=== PATIENT | male | born 1980 | race Two or more races ===

== ENCOUNTER 2018-08-08 18:31 | Emergency (ER) | payer OTHER ==
[~2018-08-08] VITALS: Ht 175.3 cm; Wt 77.3 kg
[2018-08-08 18:53] VITALS: BP 131/83
[2018-08-08] MEDS ORDERED: LIDOCAINE-MPF 2%, 2ML ONE (19:05)
[2018-08-08] MEDS ORDERED: DIPH,PERTUSS(ACELL),TET VAC/PF 0.5 ML IM-VACC ONE ×2 (19:28→19:30)
[2018-08-08] MEDS ORDERED: LIDOCAINE 2%, 20ML SQ ONE (19:30)
[2018-08-08] MEDS ORDERED: BACITRACIN ZINC OINT 500U/GM, 0.9 GM ONE (19:33)
== END 2018-08-08 19:58 | disposition home or self-care (01) ==
LOC: ED 19:49
DX: S61.412A Laceration without foreign body of left hand, initial encounter (principal); X58.XXXA Exposure to other specified factors, initial encounter; Y93.89 Activity, other specified; Y92.009 Unspecified place in unspecified non-institutional (private) residence as the place of occurrence of the external cause; Y99.8 Other external cause status
CPT/HCPCS: 12041; 90471; 90715